=== PATIENT | male | born 1960 | race Caucasian/White ===

== ENCOUNTER 2024-12-27 18:59 | Emergency (ER) | payer BC, SELFPAY ==
[2024-12-27 19:00] VITALS: BMI 28.0
[2024-12-27 20:25] VITALS: BP 143/93; PULSE 60; RESP 18; TEMP 36.8; O2SAT 95
--- NOTE | 2024-12-27 20:31 | XR_ITS ---
Examination: Toes, right foot 3 views Technique: Toes AP oblique lateral 3 views Date and time of exam: December 27, 2024 2101 hours INDICATIONS: Injury to the foot 2 days ago, foot pain. FINDINGS: Acute comminuted fracture midportion proximal phalanx first digit No major offset IMPRESSION: Acute comminuted fracture midportion proximal phalanx first digit
[2024-12-27] MEDS: DIPHTH,PERTUSS(ACELL),TET VAC 0.5 ML SYR- ADULT IMi (22:38)
[2024-12-28 00:36] VITALS: BP 140/86; PULSE 78; RESP 18; TEMP 36.6; O2SAT 96
--- NOTE | 2024-12-28 05:04 | EDNOTE_ITS ---
Lower Extremity Injury RME/HPI General Chief Complaint: Extremity Injury, Lower Stated Complaint: R) FOOT GREAT TOE ABSCESS, BROKE 2 DAYS AGO Time Seen by Provider: 12/27/24 20:31 Arrival date/time: 12/27/24 18:59 64M with no significant PMH presents to ED with R big toe pain and growth, after he accidentally hit it. Separately, patient accidentally poked himself with a nail on L hand. Patient has not had a tetanus shot in the past 5 years. Limitations: no limitations Related Data Previous Rx's ?Medication ?Instructions ?Recorded benzonatate 100 mg capsule 100 mg PO BID PRN cough #20 caps 08/05/19 famotidine 10 mg tablet (Acid 10 mg PO QDAY #10 tabs 1 10/05/18 Controller) fexofenadine 180 mg tablet 180 mg PO QDAY #14 tabs 11/22 fluticasone propionate 50 1 spray intranasal QDAY #19. 8 grams 08/05/19 mcg/actuation nasal spray,suspension (Flonase Allergy Relief) prednisone 10 mg tablet 10 mg PO BID #10 tabs meloxicam 7.5 mg tablet 7.5 mg PO QDAY #10 tabs 07/3 10/25 amoxicillin 875 mg-potassium 1 tab PO BID 7 days #14 t abs 12/28/24 clavulanate 125 mg tablet Allergies Allergy/AdvReac Type Severity Reaction Status Date / Time No Known Allergies Allergy Verified 12/27/24 19:02 Review of Systems Review of Systems Systems Reviewed: All systems reviewed, normal except as documented Constitutional Constitutional: Reports system reviewed and no additional complaints, except as documented, Denies fever(s) and Denies headache(s) ENT Ears, Nose, Mouth, and Throat: Denies disequilibrium and Denies headache(s) Cardiovascular Cardiovascular: Reports system reviewed and no additional complaints, except as documented, Denies chest pain and Denies dyspnea Respiratory Respiratory: Reports system reviewed and no additional complaints, except as documented, Denies cough and Denies dyspnea Gastrointestinal Gastrointestinal: Reports system reviewed and no additional complaints, except as documented, Denies abdominal pain, Denies nausea and Denies vomiting Musculoskeletal Musculoskeletal: Reports as per HPI and Reports arthralgias Integumentary/Breasts Skin/Breast: Reports as per HPI and Reports skin pain Neurologic Neurologic: Reports system reviewed and no additional complaints, except as documented, Denies confusion, Denies disequilibrium and Denies headache(s) Psychiatric Psychiatric: Denies confusion Past Medical History Past Medical History NEUROLOGIC: Negative Neurological Disorders or Seizures CARDIAC: Positive Cardiac Disorders (bradycardia-asymptomatic); Negative Congestive Heart Failure RESPIRATORY: Negative Chronic Obstructive Pulmonary Disease (COPD) GASTROINTESTINAL: Negative Gastrointestinal Disorders GENITOURINARY: Negative Genitourinary Disorders or Renal Disease MUSCULOSKELETAL: Positive Musculoskeletal Disorders (neck/sciatic pain) ENDOCRINE: Negative Endocrine Disorders, Diabetes Mellitus Type 1 or Diabetes Mellitus Type 2 HEMATOLOGIC: Negative Blood Disorders PSYCHO/SOCIAL: Positive Anxiety OTHER HISTORY: Negative Autoimmune Disease, Blood Transfusions, Blood Transfusion Reaction or Anesthesia Reactions Social History SMOKING STATUS: Never smoker SUBSTANCE USE: does not use ED Exam General Limitations: Present no limitations General appearance: Present alert and in no apparent distress Head Head exam: Present atraumatic Eye Eye exam: Present normal appearance, PERRL and EOMI ENT ENT exam: Present normal exam, normal oropharynx and mucous membranes moist Neck Neck exam: Present normal inspection, full ROM and trachea midline Chest Chest inspection: Present normal inspection and symmetric chest wall rise Respiratory Respiratory exam: Present normal lung sounds bilaterally Cardiovascular Cardiovascular exam: Present regular rate, normal rhythm and normal heart sounds Abdominal Exam Abdominal exam: Present soft and normal bowel sounds Extremities Exam Extremities exam: Present full ROM Expanded Upper Extremity Exam Hand exam: Present full ROM and other (L dorsal hand puncture wound) Expanded Lower Extremity Exam Foot/toe exam: Present full ROM (R big toe blood blister), tenderness and swelling Back Exam Back exam: Present normal inspection and full ROM Neurological Exam Neurological exam: Present alert, oriented X3 and CN II-XII intact Psychiatric Psychiatric exam: Present normal affect and normal mood Skin Skin exam: Present warm, dry, intact and normal color Course Quality Measures none Orders Category Date Time Status Wound Care NOW Care 12/27/24 20:31 Completed XR toe LT min 2V Stat Exams 12/27/24 20:31 Completed TET,DIP/PERT AC (Adult)-Tdap [Boostrix Adult (Tdap) Med 12/27/24 20:31 Discontinued Vacc] 0.5 ml IMI .ONCE ONE Vital Signs Vital signs: Vital Signs Temperature 98.3 F 12/27/24 20:25 Pulse Rate 60 12/27/24 20:25 Respiratory Rate 18 12/27/24 20:25 Blood Pressure 143/93 H 12/27/24 20:25 Pulse Oximetry (%) 95 12/27/24 20:25 Oxygen Delivery Method Room Air 12/27/24 20:25 O2 at 95% on RA and WNLs Extremity Injury, Lower MDM Narrative MDM Narrative:: 64M with no significant PMH presents to ED with R big toe pain and growth, after he accidentally hit it. Separately, patient accidentally poked himself with a nail on L hand. Patient has not had a tetanus shot in the past 5 years. Physical exam reveals blood blister on R big toe; some tenderness. Small puncture wound on L dorsal hand. ROM intact. Patient is afebrile, calm, and alert. XR reveals big toe fx. Blood blister drained with needle puncture. Wound cleaned/bandaged. Tdap given. Will give ABX given possible open fx, though none seen. It was also cover puncture wound on L hand. Patient data External records reviewed:: [facility] previous records Clinical information provided by:: patient Social determinants that could affect healthcare access:: none Patient has the following chronic illnesses:: none How is presenting disease/condition affected by chronic disease/condition?: no chronic disease Evaluation data The following diagnostics were reviewed and interpreted by me:: radiology exam(s) Lab and/or radiology exams considered but not ordered:: ordered Interpretation Summary: above Medications / Prescriptions Medications or Prescriptions considered but not ordered:: ordered Medication administrations:: Medication Administration History Discontinued Medications Diphtheria/Tetanus/Acell Pertussis (Diphth,Pertuss(Acell),Tet Vac 0.5 Ml Syr- Adult) 0.5 ml IMi .ONCE ONE Stop: 12/27/24 20:32 Last Admin: 12/27/24 22:38 Dose: 0.5 ml Documented By: MP above Consultations Consultation(s) initiated? (list below): No Diagnosis Extremity Injury, Lower Differential Diagnosis: ankle sprain and strain, acute internal derangement of knee, puncture wound of foot, fracture of toe, ankle fracture and other (puncture wound) Most likely diagnosis given after review of the tests above:: toe fx and puncture wound Admission Indicated Admission indicated?: not indicated Admission Request Was there a request for admission?: No Disposition Plan Disposition Plan: Discharge Discharge Attestation Discharge Attestation: The patient and all family members were given an opportunity to ask questions and understood the discharge instructions. Discharge instructions specifically effects, indications for sooner follow up or return to the emergency department, and the expected course of current diagnosis. Patient condition: Stable Discharge Plan Plan Patient Disposition: HOME (Self Care) Disposition Comment: Stable Prescriptions/Referrals Prescriptions/Med Rec: New amoxicillin-pot clavulanate 875-125 mg tablet 1 tab PO BID 7 Days Qty: 14 0RF No Action meloxicam 7.5 mg tablet 7.5 mg PO QDAY Qty: 10 0RF benzonatate 100 mg capsule 100 mg PO BID PRN (Reason: cough) Qty: 20 0RF prednisone 10 mg tablet 10 mg PO BID Qty: 10 0RF famotidine [Acid Controller] 10 mg tablet 10 mg PO QDAY Qty: 10 0RF fluticasone propionate [Flonase Allergy Relief] 50 mcg/actuation spray,suspension 1 spray INTRANASAL QDAY Qty: 19.8 0RF Rx Instructions: administer into each nostril fexofenadine 180 mg tablet 180 mg PO QDAY Qty: 14 0RF Referrals: No Primary/Family,Physician [Primary Care Provider] - In 1 week Problem List Clinical Impression: Fracture of toe, Puncture wound Patient/Caregiver Discharge Instructions Education Materials: ED Fracture, Toe, Closed Additional Instructions: Please follow-up with PCP within 24-48 hours and return immediately if symptoms worsen. See PCP for referral to ortho/podiatry. Print Language: Estonian Stand Alone Forms: Patient Portal Info Letter PA/PERSONNEL CONSULTANT Supervising Physician JUAREZ/PERSONNEL CONSULTANT Supervising Physician: Dr. Diop
== END 2024-12-28 00:38 | disposition home or self-care (01) ==
PROVIDERS: Emergency Provider Emergency Medicine
DX: S92.411A Displaced fracture of proximal phalanx of right great toe, initial encounter for closed fracture (principal); S61.432A Puncture wound without foreign body of left hand, initial encounter; W22.8XXA Striking against or struck by other objects, initial encounter; W45.0XXA Nail entering through skin, initial encounter; Z23 Encounter for immunization
CPT/HCPCS: 73660; 90471; 90715; 99283

== ENCOUNTER 2025-03-13 11:22 | Emergency (ER) | payer BC, SELFPAY ==
[2025-03-13 11:24] VITALS: BMI 28.3
[2025-03-13 11:37] VITALS: BP 144/89; PULSE 61; RESP 18; TEMP 36.4; O2SAT 97
--- NOTE | 2025-03-13 11:41 | XR_ITS ---
Examination: Foot, right, 3 views Technique: AP, oblique, lateral views foot, 3 views Date and time of exam: March 13, 2025 at 1212 hours INDICATIONS: Redness swelling and pain involving the second digit today. FINDINGS: Comminuted fractures involving the proximal phalanx first digit No foreign body IMPRESSION: Interval mild displacement of comminuted fractures proximal phalanx first digit compared with December 27, 2024, clinical correlation advised
--- NOTE | 2025-03-13 11:42 | PD.EDRME ---
Rapid Medical Screening Exam E Arrival date/time: 03/13/25 11:22 64-year-old male with no known medical history presents to the emergency room with a chief complaint of infection in his right foot second digit. Patient states it has been going on for the last week and has progressively gotten worse. The tip of his toe is turning black. Patient was sent over by his primary care provider to rule out osteomyelitis. I have greeted and performed a focused initial assessment of this patient. A comprehensive ED assessment and evaluation of the patient, analysis of all test results, and completion of the medical decision making process will be conducted by additional ED providers. Chief Complaint: Ankle/Foot Injury Time Seen by Provider: 03/13/25 11:32 Vital signs: Vital Signs Temperature 97.6 F 03/13/25 11:37 Pulse Rate 61 03/13/25 11:37 Respiratory Rate 18 03/13/25 11:37 Blood Pressure 144/89 H 03/13/25 11:37 Pulse Oximetry (%) 97 03/13/25 11:37 Oxygen Delivery Method Room Air 03/13/25 11:37 Vital signs reviewed by provider: Yes
[2025-03-13 12:23] LABS: Basophils # (Auto) 0.1 Thou/mm3 (0.0-0.2); Basophils % (Auto) 1 % (0-2.5); Eosinophils # (Auto) 0.2 Thou/mm3 (0.0-0.5); Eosinophils % (Auto) 3 % (0-10); Hematocrit 39.3 % (41.0-53.0); Hemoglobin 14.4 g/dL (13.5-16.0); Immature Granulocytes % (Auto) 0 % (0-0); Immature Granulocytes Auto 0.03 Thou/mm3 (0.00-0.00); Lymphocytes # (Auto) 1.9 Thou/mm3 (1.0-4.8); Lymphocytes % (Auto) 27 % (10-50); Mean Corpuscular HGB Conc 36.6 g/dl (31.0-37.0); Mean Corpuscular Hemoglobin 31.9 pg (25.0-35.0); Mean Corpuscular Volume 87 fL (80-100); Monocytes # (Auto) 0.4 Thou/mm3 (0.0-0.8); Monocytes % (Auto) 6 % (0-12); Neutrophils # (Auto) 4.5 Thou/mm3 (1.8-7.7); Neutrophils % (Auto) 63 % (37-80); Nucleated Red Blood Cell % 0 /100 WBC (0); Platelet Count 161 Thou/mm3 (140-440); RDW Standard Deviation 38.2 fL (35.1-43.9); Red Blood Count 4.52 Miln/mm3 (4.50-5.90); White Blood Count 7.1 Thou/mm3 (3.8-10.6)
[2025-03-13 12:25] LABS: Lactate (Lactic Acid) 1.6 mMol/L (0.4-2.0)
[2025-03-13 13:00] LABS: Alanine Aminotransferase 29 U/L (10-49); Albumin, Serum 4.3 gm/dL (3.4-4.8); Albumin/Globulin Ratio 1.9 (1.2-2.2); Alkaline Phosphatase 52 U/L (46-116); Anion Gap 11 (7-16); BUN/Creatinine Ratio 15 Ratio (12-20); Bilirubin,Total 0.6 mg/dL (0.3-1.2); Blood Urea Nitrogen 23 mg/dL (9-23); C-Reactive Protein < 0.5 mg/dL (0.0-0.9); Calcium 9.2 mg/dL (8.3-10.6); Calcium (Corrected) 9.2 mg/dL (8.5-10.1); Carbon Dioxide 22.8 mMol/L (20.0-31.0); Chloride 110 mMol/L (98-107); Creatinine (Component) 1.5 mg/dL (0.6-1.3); Estimated Creatinine Clearance 62.8 mL/min (>60); Globulin 2.3 gm/dL (2.3-3.5); Glucose 130 mg/dL (74-106); Osmolality,Calculated 292 (275-295); Potassium 4.3 mMol/L (3.4-5.1); Procalcitonin 0.07 ng/ml (0.0-0.49); Sodium 144 mMol/L (136-145); Total Protein 6.6 gm/dL (5.7-8.2); eGFR 52 See Note
[2025-03-13 13:03] LABS: Sed Rate (ESR) 2 mm/hr (0-20)
--- NOTE | 2025-03-30 13:07 | PD.EDADULT ---
ED General RME/HPI General Chief complaint: Ankle/Foot Injury Stated complaint: POSSIBLE BONE INFECTION RIGHT FOOT S/P FRACTURE Time Seen by Provider: 03/13/25 11:32 Source: patient Arrival date/time: 03/13/25 11:22 64-year-old male with no known medical history presents to the emergency room with a chief complaint of infection in his right foot second digit. Patient states it has been going on for the last week and has progressively gotten worse. The tip of his toe is turning black. Patient was sent over by his primary care provider to rule out osteomyelitis. Mode of arrival: ambulatory Limitations: no limitations RME / HPI RME / HPI narrative: 03/13/25 11:22 64-year-old male with no known medical history presents to the emergency room with a chief complaint of infection in his right foot second digit. Patient states it has been going on for the last week and has progressively gotten worse. The tip of his toe is turning black. Patient was sent over by his primary care provider to rule out osteomyelitis. I have greeted and performed a focused initial assessment of this patient. A comprehensive ED assessment and evaluation of the patient, analysis of all test results, and completion of the medical decision making process will be conducted by additional ED providers. Related Data Previous Rx's ?Medication ?Instructions ?Recorded benzonatate 100 mg capsule 100 mg PO BID PRN cough #20 caps 08/05/19 famotidine 10 mg tablet (Acid 10 mg PO QDAY #10 tabs 08/05/19 Controller) fexofenadine 180 mg tablet 180 mg PO QDAY #14 tabs 08/05/19 fluticasone propionate 50 1 spray intranasal QDAY #19.8 grams 08/05/19 mcg/actuation nasal spray,suspension (Flonase Allergy Relief) prednisone 10 mg tablet 10 mg PO BID #10 tabs 08/05/19 meloxicam 7.5 mg tablet 7.5 mg PO QDAY #10 tabs 05/03/22 Allergies Allergy/AdvReac Type Severity Reaction Status Date / Time No Known Allergies Allergy Verified 03/13/25 11:27 Review of Systems Review of Systems Systems Reviewed: All systems reviewed, normal except as documented Constitutional Constitutional: Reports system reviewed and no additional complaints, except as documented, Denies fatigue, Denies fever(s), Denies headache(s) and Denies weakness Eyes Eyes: Reports system reviewed and no additional complaints, except as documented, Denies blurry vision and Denies change in vision ENT Ears, Nose, Mouth, and Throat: Reports system reviewed and no additional complaints, except as documented, Denies otalgia, Denies headache(s), Denies nasal congestion, Denies throat swelling and Denies vertigo Cardiovascular Cardiovascular: Reports system reviewed and no additional complaints, except as documented, Denies chest pain, Denies dyspnea and Denies dyspnea on exertion Respiratory Respiratory: Reports system reviewed and no additional complaints, except as documented, Denies chest congestion, Denies cough, Denies dyspnea, Denies dyspnea on exertion and Denies wheezing Gastrointestinal Gastrointestinal: Reports system reviewed and no additional complaints, except as documented, Denies abdominal pain, Denies cramping, Denies nausea and Denies vomiting Genitourinary Genitourinary: Reports system reviewed and no additional complaints, except as documented, Denies dysuria and Denies hematuria Musculoskeletal Musculoskeletal: Reports system reviewed and no additional complaints, except as documented and Denies back pain Integumentary/Breasts Skin/Breast: Reports system reviewed and no additional complaints, except as documented and Denies wounds Neurologic Neurologic: Reports system reviewed and no additional complaints, except as documented, Denies confusion, Denies headache(s), Denies lack of coordination, Denies vertigo and Denies weakness Psychiatric Psychiatric: Reports system reviewed and no additional complaints, except as documented, Denies anxiety, Denies confusion, Denies depression, Denies paranoia, Denies suicidal ideation and Denies tactile hallucinations Endocrine Endocrine: Reports system reviewed and no additional complaints, except as documented and Denies fatigue Hematologic/Lymphatic Hematologic/Lymphatic: Reports system reviewed and no additional complaints, except as documented and Denies lymphadenopathy Allergic/Immunologic Allergic/Immunologic: Reports system reviewed and no additional complaints, except as documented, Denies throat swelling, Denies urticaria and Denies wheezing ED Exam General Limitations: Present no limitations General appearance: Present alert and in no apparent distress Head Head exam: Present atraumatic Eye Eye exam: Present normal appearance, PERRL and EOMI ENT ENT exam: Present normal exam, normal oropharynx and mucous membranes moist Neck Neck exam: Present normal inspection, full ROM and trachea midline Chest Chest inspection: Present normal inspection and symmetric chest wall rise Respiratory Respiratory exam: Present normal lung sounds bilaterally Cardiovascular Cardiovascular exam: Present regular rate, normal rhythm and normal heart sounds Abdominal Exam Abdominal exam: Present soft and normal bowel sounds Extremities Exam Extremities exam: Present normal inspection and full ROM Expanded Lower Extremity Exam Hip/Pelvis exam: Present normal inspection Upper leg exam: Present normal inspection Knee exam: Present normal inspection Lower leg exam: Present normal inspection Ankle exam: Present normal inspection Foot/toe exam: Present tenderness and swelling Gait: observed and normal Back Exam Back exam: Present normal inspection and full ROM Neurological Exam Neurological exam: Present alert, oriented X3 and CN II-XII intact Psychiatric Psychiatric exam: Present normal affect and normal mood Skin Skin exam: Present warm, dry, intact and normal color Course Quality Measures none Orders Category Date Time Status XR foot comp RT min 3V Stat Exams 03/13/25 11:41 Completed Blood Culture (Lab) Stat Lab 03/13/25 12:11 Completed CBC Stat Lab 03/13/25 12:11 Completed CMP [Comprehensive Metabolic Panel] Stat Lab 03/13/25 12:11 Completed CRP [C-Reactive Protein] Stat Lab 03/13/25 12:11 Completed ESR [Sed Rate (ESR)] Stat Lab 03/13/25 12:11 Completed Lactic Acid [Lactate (Lactic Acid)] Stat Lab 03/13/25 12:11 Completed Procalcitonin Stat Lab 03/13/25 12:11 Completed Vital Signs Vital signs: Vital Signs Temperature 97.6 F 03/13/25 11:37 Pulse Rate 61 03/13/25 11:37 Respiratory Rate 18 03/13/25 11:37 Blood Pressure 144/89 H 03/13/25 11:37 Pulse Oximetry (%) 97 03/13/25 11:37 Oxygen Delivery Method Room Air 03/13/25 11:37 O2 saturation 97% within normal limits Discharge Plan Plan Patient Disposition: HOME (Self Care) Discharge Disposition comment: Stable Prescriptions/Referrals Prescriptions/Med Rec: No Action meloxicam 7.5 mg tablet 7.5 mg PO QDAY Qty: 10 0RF benzonatate 100 mg capsule 100 mg PO BID PRN (Reason: cough) Qty: 20 0RF prednisone 10 mg tablet 10 mg PO BID Qty: 10 0RF famotidine [Acid Controller] 10 mg tablet 10 mg PO QDAY Qty: 10 0RF fluticasone propionate [Flonase Allergy Relief] 50 mcg/actuation spray,suspension 1 spray INTRANASAL QDAY Qty: 19.8 0RF Rx Instructions: administer into each nostril fexofenadine 180 mg tablet 180 mg PO QDAY Qty: 14 0RF Referrals: Daphne Grant MD [Primary Care Provider] - In 1 week Problem List Clinical Impression: Contusion of toe Patient/Caregiver Discharge Instructions Education Materials: Bone Contusion, ED Soft Tissue Contusion Additional Instructions: Please follow-up with your primary care provider in the next 24 to 48 hours You will need to follow-up with podiatry for further management of this injury to your toe. Depending on your insurance you either need a referral from your primary care provider. If you have PPO you can visit any of the podiatry clinics in [facility] and they will see you. For any evidence of worsening signs or symptoms return to the emergency room immediately Print Language: Icelandic Stand Alone Forms: Anushka Award Info., Patient Portal Info Letter PA/OIL ANALYST Supervising Physician PA/OIL ANALYST Supervising Physician: Dr. Guevara [facility] Narrative [facility] hospital course: 64-year-old male with no known medical history presents to the emergency room with a chief complaint of infection in his right foot second digit. Patient states it has been going on for the last week and has progressively gotten worse. The tip of his toe is turning black. Patient was sent over by his primary care provider to rule out osteomyelitis. Patient is hemodynamically stable and in no apparent distress. CBC CMP were negative for any leukocytosis or evidence of infection. Procalcitonin and lactic acid are within normal limits. X-ray of the right foot was completed and was negative for any osteomyelitis Patient was educated to follow-up with podiatry Patient was discharged and educated to follow-up with primary care provider in the next 24 to 48 hours and return to the emergency room for any evidence of worsening signs or symptoms Clinical Information Provided by patient Medical Records Reviewed [facility] Meds/Rx Considered, not Ordered None Labs/Rad/Tests considered, not Ordered None Chronic Illness/Social Conditions which may negatively complicate care or outcome(s)-explain: None or not applicable EKG EKG not done Lab Interpretation Labs: interpreted by me Imaging Imaging interpretation: interpreted by or Radiology reports / interpretation(s): FINDINGS: Comminuted fractures involving the proximal phalanx first digit No foreign body IMPRESSION: Interval mild displacement of comminuted fractures proximal phalanx first digit compared with December 27, 2024, clinical correlation advised Medication Administration(s) none Diagnosis Differential diagnosis: Osteomyelitis/toe contusion Differential dx and/or dx ruled out: Osteomyelitis Most likely dx, and/or detailed dx discussion: Toe contusion Dispositon Disposition: Discharge Home
== END 2025-03-13 15:22 | disposition home or self-care (01) ==
PROVIDERS: Nurse Practitioner Family; Emergency Provider Family Medicine; PCP Family Medicine
DX: S92.411A Displaced fracture of proximal phalanx of right great toe, initial encounter for closed fracture (principal); X58.XXXA Exposure to other specified factors, initial encounter
CPT/HCPCS: 36415; 73630; 80053; 83605; 84145; 85025; 85652; 86140; 87040; 99283